=== PATIENT | female | born 1965 | race Caucasian/White ===

== ENCOUNTER 2017-06-12 17:02 | Emergency (ER) | payer BC ==
[~2017-06-12] VITALS: Ht 167.6 cm; Wt 83.0 kg
[~2017-06-12 17:02] MED LIST: LEXAPRO20 MG PO; PREDNISONE50 MG PO; TOPAMAX50 MG PO
[2017-06-12 18:12] LABS: HEMATOCRIT 31.8 % (36.0-46.0); HEMOGLOBIN 10.2 G/DL (11.9-15.5); MCH 24.7 PG (29.0-34.0); MCHC 32.1 G/DL (30.0-36.0); PLATELET COUNT 249 K/uL (156-360); RBC DIS.WIDTH-CV 15.7 % (11.8-14.6); RBC DIS.WIDTH-SD 43.6 % (39-53); RED BLOOD COUNT 4.13 M/uL (3.80-5.20)
[2017-06-12 18:21] LABS: CHLORIDE 105 mEq/L (99-109); POTASSIUM 4.2 mEq/L (3.7-5.4); SODIUM 139 mEq/L (136-147)
[2017-06-12 18:23] LABS: GLUCOSE 90 mg/dL (70-99); TOTAL PROTEIN 7.1 g/dL (6.4-8.3)
[2017-06-12 18:25] LABS: TOTAL BILIRUBIN 0.1 mg/dL (0.0-1.0)
[2017-06-12 18:26] LABS: ALKALINE PHOSPHATASE 73 IU/L (3-129)
[2017-06-12 18:27] LABS: CREATININE 0.9 mg/dL (0.6-1.3); GFR ESTIMATE (CALCULATED) > 59 mL/min/
[2017-06-12 18:28] LABS: AST (GOT) 15 IU/L (2-34); UREA NITROGEN (BUN) 18 mg/dL (9-23)
[2017-06-12 18:29] LABS: ALT (GPT) 12 IU/L (3-49)
[2017-06-12 18:30] LABS: LIPASE 215 U/L (1.0-51.0)
[2017-06-12 18:33] LABS: TROP-I INTERPRETATION NEGATIVE; TROPONIN-I < 0.01 ng/mL (0.0-0.30)
[2017-06-12 19:43] LABS: AMYLASE 67 IU/L (1-118)
[2017-06-12 20:48] LABS: D-DIMER ELISA < 150.00 ng/mLDDU (<230)
[2017-06-12 21:32] LABS: TROP-I INTERPRETATION NEGATIVE; TROPONIN-I < 0.01 ng/mL (0.0-0.30)
[2017-06-12 22:25] VITALS: BP 117/73
[2017-06-17] MEDS ORDERED: KEPPRA1000 MG PO ×2 (09:22)
[2017-06-17] MEDS ORDERED: OMEPRAZOLE40 M1 PO (09:22)
== END 2017-06-12 22:26 | disposition home or self-care (01) ==
LOC: EME 17:02
PROVIDERS: Physician Assistant
DX: R07.9 Chest pain, unspecified (principal); K21.9 Gastro-esophageal reflux disease without esophagitis; F41.9 Anxiety disorder, unspecified; R56.9 Unspecified convulsions; G43.909 Migraine, unspecified, not intractable, without status migrainosus; Z88.1 Allergy status to other antibiotic agents
CPT/HCPCS: 71046; 76705; 80053; 82150; 83690; 84484; 85027; 85379; 93005; 99281; 99285

== ENCOUNTER → 2017-07-09 | Outpatient (CLI) | payer BC ==
[~2017-07-09] VITALS: Ht 160 cm; Wt 77.1 kg
[~2017-07-09] MED LIST changes: +KEPPRA1000 MG PO; +OMEPRAZOLE40 M1 PO
== END | disposition home or self-care (01) ==
LOC: AMB 10:00
PROC: 0DJ08ZZ Inspection of Upper Intestinal Tract, Via Natural or Artificial Opening Endoscopic (ICD-10-PCS; principal; 2017-07-09)
DX: K29.70 Gastritis, unspecified, without bleeding (principal); K21.9 Gastro-esophageal reflux disease without esophagitis; Z98.84 Bariatric surgery status; K91.2 Postsurgical malabsorption, not elsewhere classified; E78.5 Hyperlipidemia, unspecified; I10 Essential (primary) hypertension

== ENCOUNTER → 2017-10-05 | Outpatient (CLI) | payer BC ==
[~2017-10-05] VITALS: Ht 160 cm; Wt 77.1 kg
== END | disposition home or self-care (01) ==
LOC: AMB 08:29
PROC: 0DJD8ZZ Inspection of Lower Intestinal Tract, Via Natural or Artificial Opening Endoscopic (ICD-10-PCS; principal; 2017-10-05)
DX: Z12.11 Encounter for screening for malignant neoplasm of colon (principal); Z86.010 Personal history of colon polyps; Z80.0 Family history of malignant neoplasm of digestive organs; Z86.69 Personal history of other diseases of the nervous system and sense organs; Z98.84 Bariatric surgery status; Z83.3 Family history of diabetes mellitus; Z83.49 Family history of other endocrine, nutritional and metabolic diseases; Z82.49 Family history of ischemic heart disease and other diseases of the circulatory system; K21.0 Gastro-esophageal reflux disease with esophagitis; E78.1 Pure hyperglyceridemia; E78.00 Pure hypercholesterolemia, unspecified; E66.01 Morbid (severe) obesity due to excess calories; Z68.31 Body mass index [BMI] 31.0-31.9, adult; J30.9 Allergic rhinitis, unspecified; E55.9 Vitamin D deficiency, unspecified; E53.8 Deficiency of other specified B group vitamins; Z86.19 Personal history of other infectious and parasitic diseases